=== PATIENT | male | born 1960 | race Caucasian/White ===

== ENCOUNTER 2022-12-09 14:56 | Emergency (ER) | payer MEDICARE, OTHER ==
[2022-12-09] MEDS ORDERED: MORPHINE SULFATE 4 MG INJ IM ONE (15:06)
[2022-12-09] MEDS ORDERED: Adacel Vial IM ONE ×2 (15:07→15:43)
[2022-12-09] MEDS ORDERED: XYLOCAINE 1% HCL 20 ML MDV ONE ×3 (15:09→15:56)
[2022-12-09] MEDS ORDERED: MORPHINE SULFATE 4 MG INJ ONE (15:19)
[2022-12-09 15:20] VITALS: BP 157/112; PULSE 108; RESP 18; TEMP 98.3; O2SAT 97
[2022-12-09] MEDS ORDERED: TENIVAC VIAL IM ONE (15:34)
[2022-12-09] MEDS ORDERED: Rocephin 1000 MG INJ IM ONE (15:45)
--- NOTE | 2022-12-09 15:52 | ERPHSYRPT ---
- History of Present Illness Time Seen by Provider: 12/09/22 15:46 Source: patient Exam Limitations: no limitations Patient Subjective Stated Complaint: "cut my left hand with circular saw" Triage Nursing Assessment: Patient reports to ER with laceration to his left anterior hand near thumb. Patient reports this occurred 15 minutes prior to arrival via circular saw. Patient reports pain 15 at this time. ROM and sensation intact. Physician History: "cut my left hand with circular saw" Patient is 61-year-old male was working with circular saw and a circular saw got locked and had a laceration on the left Ms. of the thumb. Laceration is about 6 cm long and with irregular borders. Patient denies any other injury. Patient can move his thumb in all direction. Occurred: just prior to arrival Method of Injury: incised (with circular oswald) Quality: constant Severity of Pain-Max: moderate Severity of Pain-Current: moderate Extremities Pain Location: thumb: left Modifying Factors: Improves With: nothing Associated Symptoms: none Allergies/Adverse Reactions: No Known Drug Allergies Allergy (Verified 12/09/22 15:22) Home Medications: Levothyroxine Sodium 50 Mcg [Synthroid 50 Mcg] 50 mcg PO DAILY 12/09/22 [History] Hx Tetanus, Diphtheria Vaccination/Date Given: No Immunizations Up to Date: Yes Travel Risk - International Travel Have you traveled outside of the country in past 3 weeks: No - Coronavirus Screening Are you exhibiting any of the following symptoms?: No Close contact with a COVID-19 positive Pt in past 14-21 Days: No - Vaccine Status Have you recieved a Covid-19 vaccination: Yes 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 - Vaccination Dates Dates if Unknown: unknown - Review of Systems Constitutional: No Symptoms Eyes: No Symptoms Ears, Nose, & Throat: No Symptoms Respiratory: No Symptoms Cardiac: No Symptoms Abdominal/Gastrointestinal: No Symptoms Genitourinary Symptoms: No Symptoms Musculoskeletal: No Symptoms Skin: Other (laceration at base of thumb) Neurological: No Symptoms Psychological: No Symptoms Endocrine: No Symptoms - Past Medical History Pertinent Past Medical History: Yes Neurological History: No Pertinent History ENT History: No Pertinent History Cardiac History: No Pertinent History Respiratory History: No Pertinent History Endocrine Medical History: Hypothyroidism Musculoskeletal History: No Pertinent History GI Medical History: No Pertinent History History: No Pertinent History Psycho-Social History: No Pertinent History Male Reproductive Disorders: No Pertinent History - Past Surgical History Past Surgical History: Yes Other Surgical History: hernia surgery, spinal surgery, bilateral ear reconstructions, 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 - Social History Smoking Status: Current every day smoker Drug Use: none Patient Lives Alone: Yes - Nursing Vital Signs Nursing Vital Signs: Initial Vital Signs Temperature 98.3 F 12/09/22 15:01 Pulse Rate 108 H 12/09/22 15:01 Respiratory Rate 18 12/09/22 15:01 Blood Pressure 157/112 12/09/22 15:01 O2 Sat by Pulse Oximetry 97 12/09/22 15:01 Pain Scale Pain Intensity 10 - Physical Exam General Appearance: mild distress Eyes, Ears, Nose, Throat Exam: normal ENT inspection Neck Exam: normal inspection Cardiovascular/Respiratory Exam: chest non-tender Abdominal Exam: non-tender Back Exam: normal inspection Shoulder Exam: normal inspection Elbow/Forearm Exam: normal inspection Wrist Exam: normal inspection Hand Exam: laceration (left thumb base, pat area), soft tissue tenderness Neuro/Tendon Exam: normal sensation, normal motor functions, normal tendon functions Mental Status Exam: alert, oriented x 3 Skin Exam: normal color, laceration (5 cms irregular laceration) SpO2 Interpretation: normal SpO2: 97 O2 Delivery: Room Air Procedures - Laceration/Wound Repair Left Hand Time of Procedure: 15:50 Wound Location: Left, hand Wound Length (cm): 5 Wound's Depth, Shape: irregular, flap, contused tissue Wound Explored: contaminated Irrigated: Yes Hibiclens Prep: Yes Anesthesia: 1% Lidocaine Volume Anesthetic (ccs): 10 Wound Debrided: moderate Wound Repaired With: sutures Suture Size/Type: 3-0, nylon Number of Sutures: 5 Progress: 12/09/22 15:50 Patient has a irregular lacerated wound on the base of left thumb. Patient x- ray of the hand is negative. Wound is loosely closed with 5 nylon sutures. Patient is advised to follow-up with the hand surgeon tomorrow. Hand surgeon information given address and phone number given. 1 g of Rocephin intramuscular given. - Course Nursing assessment & vital signs reviewed: Yes Ordered Tests: Active Orders 24 hr Category Date Time Status Wound Care STAT Care 12/09/22 15:07 Active HAND (MINIMUM 3 VIEWS) Stat Exams 12/09/22 15:08 Taken Medication Summary Discontinued Medications Generic Name Dose Route Start Last Admin Trade Name Freq PRN Reason Stop Dose Admin Ceftriaxone Sodium 1,000 mg 12/09/22 15:45 Ceftriaxone Sodium 1000 Mg Inj Vial IM 12/09/22 15:46 STAT ONE Diphtheria/Tetanus/Acell Pertussis 0.5 ml 12/09/22 15:07 Tdap --Diph,Pertuss(Acell),Tet Vac/Pf 0.5 Ml Vial IM 12/09/22 15:08 .ONCE ONE Diphtheria/Tetanus/Acell Pertussis Confirm 12/09/22 15:43 Tdap --Diph,Pertuss(Acell),Tet Vac/Pf 0.5 Ml Vial Administered 12/09/22 15:44 Dose 0.5 ml IM .STK-MED ONE Lidocaine HCl Confirm 12/09/22 15:09 Lidocaine Hcl 1% 20 Ml Mdv 20 Ml Ml Administered 12/09/22 15:10 Dose 3 ml .ROUTE .STK-MED ONE Lidocaine HCl Confirm 12/09/22 15:31 Lidocaine Hcl 1% 20 Ml Mdv 20 Ml Ml Administered 12/09/22 15:32 Dose 1 ml .ROUTE .STK-MED ONE Morphine Sulfate 4 mg 12/09/22 15:06 12/09/22 15:25 Morphine Sulfate 4 Mg/Ml Injection IM 12/09/22 15:07 4 mg STAT ONE Administration Morphine Sulfate Confirm 12/09/22 15:19 Morphine Sulfate 4 Mg/Ml Injection Administered 12/09/22 15:20 Dose 4 mg .ROUTE .STK-MED ONE - Progress Progress: improved, pain not gone completely Progress Note: 12/09/22 15:51 Patient has a irregular lacerated wound on the base of left thumb. Patient x- ray of the hand is negative. Wound is loosely closed with 5 nylon sutures. Patient is advised to follow-up with the hand surgeon tomorrow. Hand surgeon information given address and phone number given. 1 g of Rocephin intramuscular given. Counseled pt/family regarding: diagnosis, need for follow-up (with hand surgeon [place]) Medical Desision Making - Risk of complications The pt has a mod risk of morbidity or mortality based on: Need for minor surgical intervention in patient with know risk factors - Departure Departure Disposition: Home Clinical Impression: Laceration of left thumb without complication Qualifiers: Encounter type: initial encounter Qualified Code(s): S61.012A - Laceration without foreign body of left thumb without damage to nail, initial encounter Condition: Stable Critical Care Time: No Referrals: APRIL SCHAFER [NON-STAFF PHY W/O PRIVILEGES] - Follow up/PCP as directed REGINO MAR MD [NON-STAFF PHY W/O PRIVILEGES] - Follow up/PCP as directed Instructions: Surgical Wound (DC), Wound Care (DC), Laceration Repair With Stitches (DC) Additional Instructions: Discharge/Care Plan GABBY DONOVAN was seen on 12/09/22 in the Emergency Room. The patient was counseled regarding Diagnosis,Lab results, Imaging studies, need for follow up and when to return to the Emergency Room. Prescriptions given: Discharge Note I have spoken with the patient and/or caregivers. I have explained the patient's condition, diagnosis and treatment plan based on the information available to me at this time. I have answered the patient's and/or caregiver's questions and addressed any concerns. The patient and/or caregivers have as good understanding of the patient's diagnosis, condition and treatment plan as can be expected at this point. The vital signs have been stable. The patient's condition is stable and appropriate for discharge from the emergency department. The patient will pursue further outpatient evaluation with the primary care physician or other designated or consulting physician as outlined in the discharge instructions. The patient and/or caregivers are agreeable to this plan of care and follow-up instructions have been explained in detail. The patient and/or caregivers have received these instruction. The patient/and or caregivers are aware that any significant change in condition or worsening of symptoms should prompt an immediate return to this or the closest emergency department or call 911. GABBY DONOVAN was seen on 12/09/22 n the Emergency Room. At that time you were treated for an emergent condition, during your visit Laboratory, Radiology and/or other procedures may have been ordered. It is very important that you follow-up with your Primary Care Physician within the next 24-48 hours to review your Emergency Room visit and the final results of testing that was ordered. Some test results such as Urine Cultures, Blood Cultures, and other cultures if ordered will not be finalized for 24-48 hours. If you do not have a Primary Care Provider please call the medical records department at [phone] to obtain a copy of your results or you may sign into our patient portal to obtain these results by visiting us @ [email or web address] and completing the following steps: 1. Click on the Patient Portal link 2. Click the Patient Self Enrollment Link to complete the enrollment form and entering your 3. Once the enrollment form is completed you will receive an email with a temporary ID and password at the email address you provided. 4. Next choose a user name and password. Your user name must be at least 4 characters long and your password must be at least 4 characters long. 5. Choose a security question from the list and provide your answer to the question. If you already have signed into the Health Portal you may access your Health Care Information 03/12 by the following steps: 1. Login to our website @ [email or web address] 2. Enter your original user name and password. FAQS The [facility] Health Portal is an online tool that contains your Lab Results, Radiology Reports, Visit History, Discharge Instructions and Health Summary Lab and Radiology Results will not be available for 72 hours on the portal. The Portal is a secure site, passwords are encryted and URLs are re-written so they cannot be copied and pasted. You and authorized family members are the only ones who can access your Portal. Also there is a timeout feature that protects your information if you leave the Portal page open. If you have technical difficulty please use the Contact Us link on the page this will allow you to submit any questions you have regarding the Portal or you may contact the Medical Record Department at [phone]. Prescriptions: Cephalexin Mh 500 mg [Keflex 500 mg] 500 mg PO Q6H #40 cap Naproxen 375 mg [Naprosyn 375 mg] 375 mg PO Q8H #30 tablet
[2022-12-09] MEDS ORDERED: Rocephin 1000 MG INJ ONE (15:56)
[2022-12-09] MEDS ORDERED: NARCAN 2 MG/2 ML ONE (18:58)
[2022-12-09] MEDS ORDERED: Sodium Chloride 0.9% 1000 ML 1,000 ML ONE (19:02)
--- NOTE | 2022-12-09 20:06 | XRAY ---
Indication: Chainsaw injury. Comparison: None 3 view left hand demonstrates soft tissue laceration adjacent 1st metacarpal, mild 1st metacarpal multangular scaphoid degenerative changes, radiocarpal joint space narrowing, and widened scapholunate interval concerning for underlying ligamentous tear. No other bony, articular, or soft tissue abnormalities.
== END 2022-12-09 15:58 ==
LOC: ED 14:56
DX: S61.012A Laceration without foreign body of left thumb without damage to nail, initial encounter (principal); W31.2XXA Contact with powered woodworking and forming machines, initial encounter; Z79.899 Other long term (current) drug therapy; Z72.0 Tobacco use; Z23 Encounter for immunization
CPT/HCPCS: 12002; 73130; 90471; 90714; 90715; 96372; 99283; J0696; J2270; J2310